=== PATIENT | female | born 1945 | race Caucasian/White ===

== ENCOUNTER → 2016-04-22 | Outpatient (CLI) | payer OTHER, MEDICAID ==
--- NOTE | 2016-04-22 15:50 | MA ---
Screening Digital Mammogram Clinical Indications: Routine screening. Technique: Standard cephalocaudal and mediolateral oblique projections are obtained. This examinati on is processed by the [employer] computer aided detection system. Comparison: February 2015, December 2011, October 2010 and September 2008 Breast density: B; There are scattered fibroglandular densities. Findings: CAD was reviewed. No suspicious findings are identified. Impression: Negative mammogram. . BI-RADS 1. Recommendation: Routine screening is recommended in one year. [facility] will send a result letter to the patient. Negative mammography should not preclude additional workup of a clinically suspicious finding. The patient's information is entered into a reminder system with a target due date for her next mammo gram.
== END ==
LOC: CIMAGING 14:45
DX: Z12.31 Encounter for screening mammogram for malignant neoplasm of breast (principal)
CPT/HCPCS: G0202

== ENCOUNTER → 2017-06-17 | Outpatient (CLI) | payer OTHER, MEDICAID | LOC: CIMAGING 07:49 | PROVIDERS: ATTEND Family Medicine | DX: Z12.31 Encounter for screening mammogram for malignant neoplasm of breast (principal) ==

== ENCOUNTER → 2017-10-08 | Outpatient (CLI) | payer OTHER, MEDICAID | LOC: CIMAGING 15:19 | PROVIDERS: ATTEND Family Medicine | DX: M79.645 Pain in left finger(s) (principal); M19.042 Primary osteoarthritis, left hand | CPT/HCPCS: 73140-PO ==

== ENCOUNTER → 2018-06-24 | Outpatient (CLI) | payer OTHER, MEDICAID | LOC: CIMAGING 09:34 | PROVIDERS: ATTEND Family Medicine | DX: Z12.31 Encounter for screening mammogram for malignant neoplasm of breast (principal) ==